=== PATIENT | female | born 1940 | race Caucasian/White ===

== ENCOUNTER 2016-11-20 18:37 | Emergency (ER) | payer OTHER ==
[~2016-11-20] VITALS: Ht 165.1 cm; Wt 68.0 kg
[~2016-11-20 18:37] MED LIST: ALEN70TA55 OR; AMLO5CAP40; LEVO75CA; LORA-653 OR; METO50TA7; PREVACID
[2016-11-20 19:11] LABS: Basophils # (auto) 0.1 uL; Basophils % (auto) 0.7 % (0.0-2.0); CONDITION Y; Eosinophils # (auto) 0.1 uL; Eosinophils % (auto) 1.3 % (0.0-7.0); Hematocrit 37.6 % (36.0-46.0); Hemoglobin 12.8 g/dL (12.2-16.2); Lymphocytes # (auto) 1.8 uL; Lymphocytes % (auto) 23.2 % (10.0-50.0); Mean Corpuscular Hemoglobin 31.1 pg (28.0-32.0); Mean Corpuscular Hgb Conc. 34.1 g/dL (32.0-36.0); Mean Corpuscular Volume 91.3 fL (80.0-100.0); Mean Platelet Volume 8.9 fL (7.4-10.4); Monocytes # (auto) 0.8 uL; Monocytes % (auto) 10.6 % (0.0-12.0); Neutrophils # (auto) 5.1 uL; Neutrophils % (auto) 64.2 % (37.0-80.0); Platelet Count (auto) 292 10^3/uL (140-450); White Blood Cell 7.9 10^3/uL (4.4-10.8)
[2016-11-20 19:23] LABS: Albumin 4.1 g/dL (3.4-5.0); Anion Gap 8 (5-15); Aspartate Aminotransferase 49 U/L (15-37); Blood Urea Nitrogen 27 mg/dL (7-18); Calcium 8.7 mg/dL (8.5-10.1); Carbon Dioxide 26 mmol/L (21-32); Chloride 106 mmol/L (98-107); GFR African American 40 mL/min; GFR Non-African American 33 mL/min; Glucose 159 mg/dL (74-106); Magnesium 2.4 mg/dL (1.6-2.6); Potassium 3.2 mmol/L (3.5-5.1); Sodium 140 mmol/L (136-145)
[2016-11-20 19:27] LABS: Alkaline Phosphatase 103 U/L (45-117); Bilirubin, Total 0.5 mg/dL (0.2-1.0); Total Protein 7.6 g/dL (6.4-8.2)
[2016-11-20 21:22] VITALS: BP 148/69
== END 2016-11-20 21:10 | disposition home or self-care (01) ==
LOC: ER 18:45
DX: E86.0 Dehydration (principal); I48.91 Unspecified atrial fibrillation; N18.9 Chronic kidney disease, unspecified; K21.9 Gastro-esophageal reflux disease without esophagitis; I12.9 Hypertensive chronic kidney disease with stage 1 through stage 4 chronic kidney disease, or unspecified chronic kidney disease; E07.9 Disorder of thyroid, unspecified; Z88.1 Allergy status to other antibiotic agents; Z79.899 Other long term (current) drug therapy; Z90.710 Acquired absence of both cervix and uterus
CPT/HCPCS: 36415; 71020; 76705; 80053; 83735; 84484; 85025; 93005

== ENCOUNTER 2017-04-14 09:59 | Emergency (ER) | payer OTHER ==
[~2017-04-14] VITALS: Ht 165.1 cm; Wt 66.2 kg
[2017-04-14 11:39] LABS: Basophils # (auto) 0.1 uL; Basophils % (auto) 1.4 % (0.0-2.0); Eosinophils # (auto) 0 uL; Eosinophils % (auto) 0.1 % (0.0-7.0); Hematocrit 40.8 % (36.0-46.0); Hemoglobin 13.6 g/dL (12.2-16.2); Lymphocytes # (auto) 1.2 uL; Lymphocytes % (auto) 15.9 % (10.0-50.0); Mean Corpuscular Hemoglobin 30.9 pg (28.0-32.0); Mean Corpuscular Hgb Conc. 33.4 g/dL (32.0-36.0); Mean Corpuscular Volume 92.5 fL (80.0-100.0); Mean Platelet Volume 8.4 fL (6.9-10.8); Monocytes # (auto) 0.6 uL; Monocytes % (auto) 7.5 % (0.0-12.0); Neutrophils # (auto) 5.9 uL; Neutrophils % (auto) 75.1 % (37.0-80.0); Nucleated Red Blood Cells % 0.1 %; Platelet Count (auto) 311 10^3/uL (140-450); Red Cell Distribution Width 14.7 % (11.8-14.3); White Blood Cell 7.8 10^3/uL (4.4-10.8)
[2017-04-14 11:58] LABS: Albumin 4.1 g/dL (3.4-5.0); Alkaline Phosphatase 101 U/L (45-117); Anion Gap 10 (5-15); Aspartate Aminotransferase 55 U/L (15-37); BUN/Creatinine Ratio 17.1; Bilirubin, Total 0.5 mg/dL (0.2-1.0); Blood Urea Nitrogen 29 mg/dL (7-18); Calcium 9.1 mg/dL (8.5-10.1); Carbon Dioxide 23 mmol/L (21-32); Chloride 103 mmol/L (98-107); GFR African American 37 mL/min; GFR Non-African American 31 mL/min; Glucose 138 mg/dL (74-106); Potassium 3.8 mmol/L (3.5-5.1); Sodium 136 mmol/L (136-145); Total Protein 7.9 g/dL (6.4-8.2)
[2017-04-14 12:45] LABS: Urine RBC None Seen /hpf (0 - 4)
[2017-04-14 12:53] LABS: Urine Bilirubin Negative (Negative); Urine Blood Negative /uL (Negative); Urine Color Yellow (Yellow); Urine Glucose Normal (Normal); Urine Hyaline Cast MOD /lpf (0 - 2); Urine Ketone Negative (Negative); Urine Mucus FEW (None Seen); Urine Nitrite Negative (Negative); Urine Squamous Epithelial Cell FEW /hpf (<5)
[2017-04-14 13:16] VITALS: BP 151/72
== END 2017-04-14 13:16 | disposition home or self-care (01) ==
LOC: ER 09:59
DX: N39.0 Urinary tract infection, site not specified (principal); I48.91 Unspecified atrial fibrillation; I12.9 Hypertensive chronic kidney disease with stage 1 through stage 4 chronic kidney disease, or unspecified chronic kidney disease; N18.9 Chronic kidney disease, unspecified; K21.9 Gastro-esophageal reflux disease without esophagitis; Z88.1 Allergy status to other antibiotic agents
CPT/HCPCS: 36415; 80053; 81001; 84484; 85025; 93005

== ENCOUNTER 2017-12-07 10:09 | Emergency (ER) | payer OTHER ==
[~2017-12-07] VITALS: Ht 162.6 cm; Wt 63.5 kg
[~2017-12-07 10:09] MED LIST changes: +MET5XLT; -METO50TA7
[2017-12-07 11:26] LABS: Basophils # (auto) 0.1 uL; Basophils % (auto) 1.3 % (0.0-2.0); Eosinophils # (auto) 0 uL; Eosinophils % (auto) 0.5 % (0.0-7.0); Hematocrit 37.5 % (36.0-46.0); Hemoglobin 12.6 g/dL (12.2-16.2); Lymphocytes # (auto) 1.2 uL; Lymphocytes % (auto) 19.4 % (10.0-50.0); Mean Corpuscular Hemoglobin 31.3 pg (28.0-32.0); Mean Corpuscular Hgb Conc. 33.6 g/dL (32.0-36.0); Mean Corpuscular Volume 93.3 fL (80.0-100.0); Monocytes # (auto) 0.6 uL; Monocytes % (auto) 9.7 % (0.0-12.0); Neutrophils # (auto) 4.3 uL; Neutrophils % (auto) 69.1 % (37.0-80.0); Platelet Count (auto) 235 10^3/uL (140-450); Red Blood Cells 4.03 10^6/uL (4.0-5.20); Red Cell Distribution Width 14.2 % (11.8-14.3); White Blood Cell 6.2 10^3/uL (4.4-10.8)
[2017-12-07 11:49] LABS: Alanine Aminotransferase 31 U/L (13-56); Alkaline Phosphatase 92 U/L (45-117); Anion Gap 10 (5-15); Aspartate Aminotransferase 55 U/L (15-37); BUN/Creatinine Ratio 16.3; Bilirubin, Total 0.6 mg/dL (0.2-1.0); Blood Urea Nitrogen 27 mg/dL (7-18); Calcium 8.7 mg/dL (8.5-10.1); Carbon Dioxide 22 mmol/L (21-32); Chloride 105 mmol/L (98-107); GFR African American 38 mL/min; GFR Non-African American 32 mL/min; Glucose 141 mg/dL (74-106); Potassium 3.8 mmol/L (3.5-5.1); Sodium 137 mmol/L (136-145); Total Protein 7.3 g/dL (6.4-8.2)
[2017-12-07 13:07] LABS: Urine Bacteria FEW /hpf (None Seen); Urine Blood Negative /uL (Negative); Urine Specific Gravity 1.007 (1.001-1.035); Urine WBC 2 /hpf (0 - 5)
[2017-12-07 13:45] VITALS: BP 138/63
[2017-12-07] MEDS ORDERED: PANTOPRAZOLE 40 MG TAB PO ONE (14:00)
== END 2017-12-07 14:46 | disposition home or self-care (01) ==
LOC: ER 10:11
DX: K21.9 Gastro-esophageal reflux disease without esophagitis (principal); I48.91 Unspecified atrial fibrillation; I11.0 Hypertensive heart disease with heart failure; I50.9 Heart failure, unspecified; Z90.710 Acquired absence of both cervix and uterus
CPT/HCPCS: 36415; 71046; 80053; 81001; 83880; 84484; 85025; 93005

== ENCOUNTER 2019-11-04 15:24 | Emergency (ER) | payer OTHER ==
[~2019-11-04] VITALS: Ht 162.6 cm; Wt 63.5 kg
[~2019-11-04 15:24] MED LIST changes: +ALEN1TAB32 OR; -ALEN70TA55 OR; -LEVO75CA; +LEVO75CA2; -LORA-653 OR; +LORA0.5T19 OR; -MET5XLT; +METO-6
[2019-11-04 19:14] LABS: Basophils # (auto) 0.1 10 ^3/uL (0-0.2); Eosinophils # (auto) 0 10 ^3/uL (0-0.8); Eosinophils % (auto) 0.2 % (0.0-7.0); Hematocrit 39.8 % (36.0-46.0); Hemoglobin 13.1 g/dL (12.2-16.2); Lymphocytes # (auto) 1.5 10 ^3/uL (0.4-5.4); Lymphocytes % (auto) 19.8 % (10.0-50.0); Mean Corpuscular Hemoglobin 28.9 pg (28.0-32.0); Mean Corpuscular Hgb Conc. 32.9 g/dL (32.0-36.0); Monocytes # (auto) 0.6 10 ^3/uL (0-1.3); Monocytes % (auto) 8.3 % (0.0-12.0); Neutrophils # (auto) 5.5 10 ^3/uL (1.6-8.6); Neutrophils % (auto) 70.7 % (37.0-80.0); Platelet Count (auto) 282 10^3/uL (140-450); Red Blood Cells 4.52 10^6/uL (4.0-5.20); Red Cell Distribution Width 14.2 % (11.8-14.3); White Blood Cell 7.7 10^3/uL (4.4-10.8)
[2019-11-04 19:22] LABS: INR 0.98 (0.9-1.15); Partial Thromboplastin Time 26.4 sec (23.64-32.05)
[2019-11-04 19:27] LABS: Alanine Aminotransferase 18 U/L (13-56); Albumin 4.7 g/dL (3.4-5.0); Anion Gap 8 (5-15); Aspartate Aminotransferase 43 U/L (15-37); BUN/Creatinine Ratio 14.7; Blood Urea Nitrogen 24 mg/dL (7-18); Calcium 9.2 mg/dL (8.5-10.1); Carbon Dioxide 24 mmol/L (21-32); Chloride 101 mmol/L (98-107); GFR African American 39 mL/min; GFR Non-African American 32 mL/min; Glucose 120 mg/dL (74-106); Potassium 4.1 mmol/L (3.5-5.1); Sodium 133 mmol/L (136-145)
[2019-11-04 19:32] LABS: Alkaline Phosphatase 113 U/L (45-117); Bilirubin, Total 0.7 mg/dL (0.2-1.0); Total Protein 8.5 g/dL (6.4-8.2)
[2019-11-04 20:46] VITALS: BP 139/65
== END 2019-11-04 20:10 | disposition home or self-care (01) ==
LOC: ER 15:24
DX: R07.89 Other chest pain (principal); I12.9 Hypertensive chronic kidney disease with stage 1 through stage 4 chronic kidney disease, or unspecified chronic kidney disease; N18.9 Chronic kidney disease, unspecified; E78.5 Hyperlipidemia, unspecified; I48.91 Unspecified atrial fibrillation; Z88.1 Allergy status to other antibiotic agents; Z90.89 Acquired absence of other organs; Z90.710 Acquired absence of both cervix and uterus
CPT/HCPCS: 36415; 71046; 80053; 84484; 85025; 85610; 85730; 93005

== ENCOUNTER 2020-11-21 14:13 | Inpatient (IN) | payer OTHER ==
[~2020-11-21] VITALS: Ht 160 cm; Wt 60.9 kg
[~2020-11-21 14:13] MED LIST changes: -ALEN1TAB32 OR; +ALEN70TA74 OR
[2020-11-21 15:17] LABS: Basophils # (auto) 0.1 10 ^3/uL (0-0.2); Basophils % (auto) 1.2 % (0.0-2.0); Eosinophils # (auto) 0 10 ^3/uL (0-0.8); Eosinophils % (auto) 0.4 % (0.0-7.0); Hematocrit 37.6 % (36.0-46.0); Hemoglobin 12.8 g/dL (12.2-16.2); Lymphocytes # (auto) 1.7 10 ^3/uL (0.4-5.4); Lymphocytes % (auto) 22.5 % (10.0-50.0); Mean Corpuscular Hemoglobin 29.3 pg (28.0-32.0); Mean Corpuscular Volume 86.3 fL (80.0-100.0); Monocytes # (auto) 0.7 10 ^3/uL (0-1.3); Monocytes % (auto) 8.9 % (0.0-12.0); Red Blood Cells 4.36 10^6/uL (4.0-5.20); White Blood Cell 7.5 10^3/uL (4.4-10.8)
[2020-11-21 15:28] LABS: INR 0.98 (0.9-1.15); Partial Thromboplastin Time 25.8 sec (23.0-31.2)
[2020-11-21 15:33] LABS: Albumin 4.5 g/dL (3.4-5.0); Anion Gap 8 (5-15); BUN/Creatinine Ratio 17.8; Blood Urea Nitrogen 28 mg/dL (7-18); Carbon Dioxide 22 mmol/L (21-32); Chloride 103 mmol/L (98-107); GFR African American 41 mL/min; GFR Non-African American 34 mL/min; Glucose 104 mg/dL (74-106); Potassium 4.2 mmol/L (3.5-5.1); Sodium 133 mmol/L (136-145)
[2020-11-21 15:38] LABS: Alanine Aminotransferase 26 U/L (13-56); Alkaline Phosphatase 87 U/L (45-117); Aspartate Aminotransferase 51 U/L (15-37); Bilirubin, Total 0.6 mg/dL (0.2-1.0); Total Protein 7.7 g/dL (6.4-8.2)
[2020-11-21] MEDS ORDERED: PANTOPRAZOLE 40 MG/10 ML VIAL INJ IV ONE (16:30)
[2020-11-21] MEDS ORDERED: MORPHINE SULFATE INJECTION 2 MG/ML SYRG IV PRN (21:15)
[2020-11-21] MEDS ORDERED: ACETAMINOPHEN 325 MG TAB PO PRN (21:15)
[2020-11-21] MEDS ORDERED: ONDANSETRON HCL 4 MG/2 ML VIAL IV PRN (21:15)
[2020-11-21] MEDS ORDERED: NITROGLYCERIN 0.4 MG SL TAB SL PRN (21:15)
[2020-11-21] MEDS: ATORVASTATIN 20 MG TAB PO SCH (22:13)
[2020-11-21] MEDS: TEMAZEPAM 15 MG CAP PO PRN (22:17)
[2020-11-22] MEDS: LEVOTHYROXINE SODIUM 25 MCG TAB PO SCH (06:54)
[2020-11-22 07:23] LABS: Basophils # (auto) 0.1 10 ^3/uL (0-0.2); Basophils % (auto) 2.1 % (0.0-2.0); Eosinophils # (auto) 0.1 10 ^3/uL (0-0.8); Eosinophils % (auto) 1.2 % (0.0-7.0); Hematocrit 36.4 % (36.0-46.0); Hemoglobin 12.5 g/dL (12.2-16.2); Lymphocytes # (auto) 1.8 10 ^3/uL (0.4-5.4); Lymphocytes % (auto) 33.1 % (10.0-50.0); Mean Corpuscular Hemoglobin 29.6 pg (28.0-32.0); Mean Corpuscular Hgb Conc. 34.2 g/dL (32.0-36.0); Mean Corpuscular Volume 86.5 fL (80.0-100.0); Monocytes # (auto) 0.6 10 ^3/uL (0-1.3); Monocytes % (auto) 11.7 % (0.0-12.0); Neutrophils # (auto) 2.8 10 ^3/uL (1.6-8.6); Neutrophils % (auto) 51.9 % (37.0-80.0); Red Blood Cells 4.21 10^6/uL (4.0-5.20); Red Cell Distribution Width 15.4 % (11.8-14.3); White Blood Cell 5.4 10^3/uL (4.4-10.8)
[2020-11-22 07:51] LABS: Albumin 3.9 g/dL (3.4-5.0); Potassium 3.8 mmol/L (3.5-5.1)
[2020-11-22 07:53] LABS: BUN/Creatinine Ratio 17.2
[2020-11-22 07:56] LABS: Bilirubin, Total 0.8 mg/dL (0.2-1.0); Total Protein 6.8 g/dL (6.4-8.2)
[2020-11-22 09:33] VITALS: BP 133/70
[2020-11-22] MEDS ORDERED: ASPirin 81 mg TAB PO SCH (10:00)
[2020-11-22] MEDS ORDERED: PANTOPRAZOLE 40 MG TAB PO SCH (10:00)
[2020-11-22] MEDS: METOPROLOL SUCCINATE XL 50 MG TAB PO SCH (10:00)
[2020-11-22] MEDS ORDERED: AMIODARONE HCL 200 MG TAB PO SCH (10:00)
[2020-11-22] MEDS ORDERED: amLODIPine BESYLATE 5 MG TAB PO SCH (10:00)
[2020-11-22] MEDS ORDERED: AMIO100T3 OR (10:26)
[2020-11-22 12:44] VITALS: BP 136/66
[2020-11-22 17:00] VITALS: BP 138/66
[2020-11-22] MEDS: ATORVASTATIN 20 MG TAB PO SCH (21:57)
[2020-11-22 22:00] VITALS: BP 123/70
[2020-11-22] MEDS: TEMAZEPAM 15 MG CAP PO PRN (23:30)
[2020-11-23 05:00] VITALS: BP 130/61
[2020-11-23] MEDS: LEVOTHYROXINE SODIUM 25 MCG TAB PO SCH (06:59)
[2020-11-23] MEDS: METOPROLOL SUCCINATE XL 50 MG TAB PO SCH (08:49)
[2020-11-23 08:51] VITALS: BP 123/72
[2020-11-23] MEDS ORDERED: SUCR1TAB22 OR (08:52)
[2020-11-23] MEDS ORDERED: PANT40TA2 PO (08:52)
[2020-11-23 09:00] VITALS: BP 122/63
== END 2020-11-23 10:00 | disposition home or self-care (01) | DRG 392 ==
LOC: ER 14:13 → TELE 21:13 → TELE-WESTW 11-22 08:26
PROVIDERS: ADMIT Nurse Practitioner; ATTEND Internal Medicine
DX: K21.9 Gastro-esophageal reflux disease without esophagitis (principal); N18.30 Chronic kidney disease, stage 3 unspecified; I48.91 Unspecified atrial fibrillation; I35.1 Nonrheumatic aortic (valve) insufficiency; E03.9 Hypothyroidism, unspecified; E78.5 Hyperlipidemia, unspecified; R07.9 Chest pain, unspecified; Z20.822 Contact with and (suspected) exposure to COVID-19; I12.9 Hypertensive chronic kidney disease with stage 1 through stage 4 chronic kidney disease, or unspecified chronic kidney disease; M40.204 Unspecified kyphosis, thoracic region; Z88.1 Allergy status to other antibiotic agents; Z88.8 Allergy status to other drugs, medicaments and biological substances; Z82.49 Family history of ischemic heart disease and other diseases of the circulatory system; Z90.710 Acquired absence of both cervix and uterus; Z90.49 Acquired absence of other specified parts of digestive tract
CPT/HCPCS: 36415; 71046; 80053; 83735; 83880; 84443; 84484; 85025; 85610; 85730; 87426; 93005; 93306; 96374; C9113; G0378

== ENCOUNTER 2022-02-07 06:17 | Emergency (ER) | payer OTHER ==
[~2022-02-07] VITALS: Ht 165.1 cm; Wt 66.0 kg
[~2022-02-07 06:17] MED LIST changes: +AMIO100T3 OR; +PANT40TA2 PO; +SUCR1TAB22 OR
[2022-02-07] MEDS ORDERED: cefTRIAXone SOD 1,000 MG VL IM ONE (08:00)
[2022-02-07 08:15] VITALS: BP 151/102
[2022-02-07] MEDS ORDERED: LIDOCAINE 1% HCL (LOCAL ANESTH.) INJ 20ML MDV ONE (08:17)
[2022-02-07] MEDS ORDERED: PROM1SOL4 PO (08:19)
[2022-02-07] MEDS ORDERED: AMOX500C2 PO (08:19)
== END 2022-02-07 08:32 | disposition home or self-care (01) ==
LOC: ER 06:17
DX: J20.9 Acute bronchitis, unspecified (principal); J02.9 Acute pharyngitis, unspecified; I12.9 Hypertensive chronic kidney disease with stage 1 through stage 4 chronic kidney disease, or unspecified chronic kidney disease; N18.9 Chronic kidney disease, unspecified; K21.9 Gastro-esophageal reflux disease without esophagitis; E78.5 Hyperlipidemia, unspecified; Z90.49 Acquired absence of other specified parts of digestive tract; Z90.711 Acquired absence of uterus with remaining cervical stump; Z90.89 Acquired absence of other organs; Z88.1 Allergy status to other antibiotic agents; Z88.8 Allergy status to other drugs, medicaments and biological substances
CPT/HCPCS: 71046; 96372; 99283; J0696; J2001